=== PATIENT | male | born 1995 | race Caucasian/White ===

== ENCOUNTER 2020-10-13 11:31 | Emergency (ER) | payer OTHER, SELFPAY ==
[2020-10-13 11:42] VITALS: PULSE 84; O2SAT 100
[2020-10-13 11:47] VITALS: BP 164/94; PULSE 82; RESP 16; TEMP 36.3; O2SAT 100; BMI 34.8
[2020-10-13 12:02] LABS: Add Manual Diff / Slide Review NO; Basophils Absolute Auto 100 /uL (0-100); Basophils Percent Auto 0.8 % (0-2); Eosinophils Absolute Auto 100 /uL (0-450); Eosinophils Percent Auto 1.3 % (2-4); Hematocrit 44.8 % (41-53); Hemoglobin 15.5 g/dL (13.5-17.5); Lymphocytes Absolute Auto 1600 /uL (1100-4500); Lymphocytes Percent Auto 14.8 % (25-40); Mean Corpuscular HGB Conc 34.7 % (30-36); Mean Corpuscular Hemoglobin 30.8 PG (26-34); Mean Corpuscular Volume 88.9 fL (80-100); Monocytes Absolute Auto 500 /uL (0-900); Monocytes Percent Auto 4.8 % (3-14); Neutrophils Absolute Auto 8300 /uL (1500-7000); Neutrophils Percent Auto 78.3 % (50-75); Platelet Count 254 X10^3/uL (150-400); Red Blood Cell Count 5.04 X10^6/uL (4.5-5.9); Red Cell Distribution Width 13.1 % (11.6-14.8); White Blood Cell Count 10.6 X10^3/uL (4.5-11.0)
[2020-10-13 12:09] LABS: INR 0.9 (0.9-1.3); Prothrombin Time 10.4 SECONDS (10.1-12.7)
[2020-10-13 12:11] LABS: PTT Partial Thromboplastin Tim 27 SECONDS (26.4-36.2)
[2020-10-13 12:13] LABS: Alanine Aminotransferase 66 IU/L (<50); Albumin Globulin Ratio 1.3 (1.0-2.8); Alkaline Phosphatase 96 U/L (38-126); Aspartate Aminotransferase 61 IU/L (17-59); BUN Creatinine Ratio 14.4 (6-22); Bilirubin Total 0.6 mg/dL (0.2-1.3); Blood Urea Nitrogen 15 mg/dL (9-20); Calcium 9.8 mg/dL (8.4-10.2); Carbon Dioxide 23 mmol/L (22-32); Chloride 106 mmol/L (98-107); Estimated Glomerular Filt Rate > 60.0 mL/min (>60); Globulin 3.9 g/dL (1.7-4.1); Glucose 114 mg/dL (70-100); HEMOLYSIS 19 (0-50); Lipase 76 U/L (23-300); Potassium 4.1 mmol/L (3.4-5.1); Sodium 140 mmol/L (137-145); Total Protein 8.9 g/dL (6.3-8.2)
--- NOTE | 2020-10-13 12:22 | DI.CT.S_ITS ---
PROCEDURE: CT ABDOMEN PELVIS W CON INDICATIONS: left abd/side pain TECHNIQUE: After the administration of intravenous contrast, 5 mm thick sections acquired from the diaphragm to the symphysis. 5 mm coronal and sagittal reformats were acquired. For radiation dose reduction, the following was used: automated exposure control, adjustment of mA and/or kV according to patient size. COMPARISON: None. FINDINGS: Image quality: Excellent. ABDOMEN: Lung bases: Lung bases are clear. Heart size is normal. Solid organs: Liver is normal in size and enhancement. Diffuse fatty liver infiltration is noted. Gallbladder wall is not thickened. Biliary system is non dilated. Pancreas enhances normally. Spleen is normal in size and enhancement. No adrenal nodules. There is an obstructing stone seen within the left proximal ureter, as on series 4, image 39 and on series 2 image 36, which measures 6 mm craniocaudal. There is mild associated right-sided hydroureter and hydronephrosis. No right-sided hydronephrosis is seen. To the limits of this contrast enhanced study, no nonobstructing stones are seen. Peritoneum and bowel: Bowel loops demonstrate normal wall thickness and caliber. No free fluid or air. A normal appendix is incidentally noted. Nodes and vessels: No retroperitoneal or mesenteric adenopathy by size criteria. Aorta and inferior vena cava are normal in size. Miscellaneous: No ventral hernias. PELVIS: Genitourinary: Bladder wall thickness is normal. Miscellaneous: No inguinal hernias or adenopathy. Bones: No suspicious bony lesions. No vertebral body compression fractures. IMPRESSION: 6 mm obstructing stone seen within the left proximal ureter. Incidental note is made of: Fatty liver infiltration Normal appendix Dictated by: Bar Greco M.D. on 10/13/2020 at 11:59 Approved by: Bar Greco M.D. on 10/13/2020 at 12:01
[2020-10-13 12:31] LABS: Bacteria Urine None Seen
[2020-10-13 12:39] LABS: Creatine Kinase 120 U/L (55-170)
[2020-10-13] MEDS: KETOROLAC 60 MG/2 ML VIAL 15 MG IV (12:40)
[2020-10-13 12:45] LABS: Culture Indicated Urine Cult Not Indicated; RBC Urine >100/HPF (0-5/HPF); Squamous Epithelial Cell Urine 0-1 /HPF (0-5/HPF); WBC Urine 0-1/HPF (0-5/HPF)
[2020-10-13 12:47] VITALS: BP 138/82; PULSE 85; O2SAT 99
[2020-10-13 13:00] VITALS: BP 127/72; PULSE 78; O2SAT 97
--- NOTE | 2020-10-13 13:16 | ED.ABDPAIN ---
HPI - Abdominal Pain <EDGAR Barragan - Last Filed: 10/13/20 15:59> General Chief Complaint: Abdominal Pain Stated Complaint: stabbing pain in side and pee looks like pop Time Seen by Provider: 10/13/20 12:05 Source: patient and family Mode of arrival: Family Vehicle Limitations: no limitations History of Present Illness HPI narrative: This is a 25-year-old male, smoker, who has noncontributory medical history presents to ED with family with chief complain of left abdominal and side pain since this morning. Patient noticed coke color urine since last night. Patient denies dysuria, urinary frequency, or flank pain but noticed foamy urine. He denies fever, chills, nausea or vomiting. Patient reports pain started after drinking a large glass of water this morning. Pain is sharp in character and rates as 9/10. Patient denies other aggravating or relieving factors. Patient reports after his resting in bed pain seems slightly improved however. Patient never had this type of pain before and denies history of kidney stones. Patient reports his mother had couple of kidney stones in the past. Patient denies past abdominal surgery history. Patient denies swelling or bulging and testicle region and denies penile discharge. Patient reports he has loose stools for last 3 days but this is not abnormal for him. Patient denies known exposure to COVID-19. Related Data Previous Rx's Medication Instructions Recorded benzonatate [Tessalon Perles] 100 mg PO TID #30 cap 12/25/17 ipratropium-albuterol [Combivent 1 puff INH QID #1 inh 12/25/17 Respimat] hydrocodone-acetaminophen [[place]] 1 tab PO Q6H PRN #14 tab 10/13/20 ondansetron 4 mg PO Q6H PRN #10 tab 10/13/20 tamsulosin [Flomax] 0.4 mg PO BEDTIME #10 cap 10/13/20 Allergies Allergy/AdvReac Type Severity Reaction Status Date / Time Penicillins [PENICILLINS] Allergy Unknown Verified 10/13/20 11:51 Review of Systems <EDGAR Barragan - Last Filed: 10/13/20 15:59> Review of Systems Narrative: General: Denies fever, chills, fatigue, malaise, sweats. HEENT: Denies sinus pain, ear pain, sore throat, difficulty swallowing, dizziness. Respiratory: Denies dyspnea, cough, wheezing, hemoptysis, sputum. Cardiovascular: Denies chest pain, palpitations, orthopnea, edema. Gastrointestinal: See HPI : See HPI Musculoskeletal: Denies weakness, joint pain or bony pain. Skin: Denies rash, skin lesions, or other. Neurologic: Denies weakness, headache, numbness, change in speech, confusion, seizures, incoordination. Psychiatric: No concerning psychosocial issues. 12-point review of systems is negative except for those stated above. Patient History [facility] - Last Filed: 10/13/20 15:59> Social History Smoking Status: Current some day smoker Smoking Status: Current some day smoker tobacco type: cigarettes alcohol intake frequency: 0-2 drinks per day Substance Use Type: does not use Exam <[facility] - Last Filed: 10/13/20 15:59> Narrative Exam Narrative: GEN: Alert, oriented x 3, well appearing and nourished, and in no acute distress. Head: Normal cephalic, atraumatic. No scalp or temporal tenderness, palpable mass or rash. EYES: Pupils are equal, round, and reactive to light and accommodation. Extraocular muscles are intact bilaterally. There is no subconjunctival hemorrhage, exudate and sclera non-icteric. ENT: Hearing grossly intact. Nose without bleeding, purulent discharge or deviation. Mucous membrane moist, no mucosal lesion. Throat without erythema, tonsillar hypertrophy or exudate. Uvula in midline, airway patent. Neck: Trachea in midline. No JVD, non-tender without lymphadenopathy. No masses or thyroid megaly. Supple, non-tender and no meningeal signs. CARDIAC: Normal regular rate and rhythm without murmurs, gallops, or rubs. No chest wall tenderness. No peripheral edema, cyanosis or pallor. Capillary refill is less than 2 seconds. RESPIRATORY: Lungs are clear to auscultate bilaterally. No cough, wheezes, rales, or rhonchi. No stridor, respiratory distress, increase work of breathing, or accessary muscle used. ABD: Abdomen soft and non-distended. Left mid and lower quadrant discomfort to palpate. No guarding or rebound tenderness to palpate. Bowel sounds are normal in all 4 quadrants. There is no palpable masses or organomegaly. EXT: Full painless ROM of all extremities with no loss of sensation, strength, effusion or edema. SKIN: Warm, dry, normal color for patient. No erythema, lesions or rash over visible areas. BACK: Nontender without deformity or crepitance. No flank tenderness. NEUROLOGICAL: Alert and oriented to place, time and person. Sensation and motor function intact bilaterally. No facial droops, dysphasia. PSYCHIATRIC: Good judgement and reason, without hallucinations, abnormal affect or abnormal behaviors during the examination. Patient is not suicidal. Initial Vital Signs Initial Vital Signs: Vital Signs Pulse Rate 84 10/13/20 11:42 Pulse Oximetry 100 10/13/20 11:42 <Munira Umanzor DO - Last Filed: 10/13/20 19:10> Initial Vital Signs Initial Vital Signs: Vital Signs Pulse Rate 84 10/13/20 11:42 Pulse Oximetry 100 10/13/20 11:42 Scores <EDGAR Barragan - Last Filed: 10/13/20 15:59> GCS José Antonio coma scale eye opening: Spontaneous José Antonio coma scale verbal response: Orientated José Antonio coma scale motor response: Obey commands José Antonio coma scale total score: 15 Course <EDGAR Barragan - Last Filed: 10/13/20 15:59> Orders Ordered: ED Orders 10/13/20 11:55 Complete Blood Count AUTO DIFF Stat Comprehensive Metabolic Panel Stat Creatine Kinase Stat Lipase Stat Partial Thromboplastin Time Stat Prothrombin Time INR Stat 10/13/20 12:22 CT abdomen pelvis w con Stat 10/13/20 12:30 Urine Microscopic Stat Discontinued Medications Ketorolac Tromethamine (Ketorolac 60 Mg/2 Ml Vial) 15 mg IV NOW ONE Stop: 10/13/20 12:23 Last Admin: 10/13/20 12:40 Dose: 15 mg Documented by: JUDSON Vital Signs Vital signs: Vital Signs - 8 hr 10/13/20 11:42 10/13/20 11:47 10/13/20 12:47 Temperature 97.4 F L Pulse Rate 84 82 85 Respiratory Rate 16 Blood Pressure 164/94 H 138/82 Pulse Oximetry 100 100 99 10/13/20 13:00 Temperature Pulse Rate 78 Respiratory Rate Blood Pressure 127/72 Pulse Oximetry 97 <Munira Umanzor DO - Last Filed: 10/13/20 19:10> Orders Ordered: ED Orders 10/13/20 11:55 Complete Blood Count AUTO DIFF Stat Comprehensive Metabolic Panel Stat Creatine Kinase Stat Lipase Stat Partial Thromboplastin Time Stat Prothrombin Time INR Stat 10/13/20 12:22 CT abdomen pelvis w con Stat 10/13/20 12:30 Urine Microscopic Stat Discontinued Medications Ketorolac Tromethamine (Ketorolac 60 Mg/2 Ml Vial) 15 mg IV NOW ONE Stop: 10/13/20 12:23 Last Admin: 10/13/20 12:40 Dose: 15 mg Documented by: JUDSON Vital Signs Vital signs: Vital Signs - 8 hr 10/13/20 11:42 10/13/20 11:47 10/13/20 12:47 Temperature 97.4 F L Pulse Rate 84 82 85 Respiratory Rate 16 Blood Pressure 164/94 H 138/82 Pulse Oximetry 100 100 99 10/13/20 13:00 Temperature Pulse Rate 78 Respiratory Rate Blood Pressure 127/72 Pulse Oximetry 97 MDM - Abdominal Pain <EDGAR Barragan - Last Filed: 10/13/20 15:59> Differential Diagnosis Differential diagnosis: Likely abdominal pain, calculus of kidney, small bowel obstruction and other (Diverticulosis, diverticulitis, testicular torsion, cystitis) Medical Records Attestation: I reviewed the patient's medical records. Lab Data Attestation: I reviewed the patient's lab results. Result diagrams: 10/13/20 11:55 10/13/20 11:55 Labs: Lab Results 10/13/20 10/13/20 10/13/20 Range/Units 11:55 11:55 11:55 WBC 10.6 (4.5-11.0) X10^3/uL RBC 5.04 (4.5-5.9) X10^6/uL Hgb 15.5 (13.5-17.5) g/dL Hct 44.8 (41-53) % MCV 88.9 (80-100) fL MCH 30.8 (26-34) PG MCHC 34.7 (30-36) % RDW 13.1 (11.6-14.8) % Plt Count 254 (150-400) X10^3/uL Neut % (Auto) 78.3 H (50-75) % Lymph % (Auto) 14.8 L (25-40) % [place] % (Auto) 4.8 (3-14) % Eos % (Auto) 1.3 L (2-4) % Baso % (Auto) 0.8 (0-2) % Neut # (Auto) 8300 H (2474-6457) /uL Lymph # (Auto) 1600 (8995-5137) /uL [place] # (Auto) 500 (0-900) /uL Eos # (Auto) 100 (0-450) /uL Baso # (Auto) 100 (0-100) /uL PT 10.4 (10.1-12.7) SECONDS INR 0.9 (0.9-1.3) APTT 27 (26.4-36.2) SECONDS Sodium 140 (137-145) mmol/L Potassium 4.1 (3.4-5.1) mmol/L Chloride 106 (98-107) mmol/L Carbon Dioxide 23 (22-32) mmol/L BUN 15 (9-20) mg/dL Creatinine 1.04 (0.66-1.25) mg/dL Estimated GFR > 60.0 (>60) mL/min BUN/Creatinine Ratio 14.4 (6-22) Glucose 114 H (70-100) mg/dL Calcium 9.8 (8.4-10.2) mg/dL Total Bilirubin 0.6 (0.2-1.3) mg/dL AST 61 H (17-59) IU/L ALT 66 H (<50) IU/L Alkaline Phosphatase 96 (38-126) U/L Total Creatine Kinase (55-170) U/L Total Protein 8.9 H (6.3-8.2) g/dL Albumin 5.0 (3.5-5.0) g/dL Globulin 3.9 (1.7-4.1) g/dL Albumin/Globulin Ratio 1.3 (1.0-2.8) Lipase 76 (23-300) U/L Urine RBC (0-5/HPF) Urine WBC (0-5/HPF) Ur Squamous Epith Cells (0-5/HPF) Urine Bacteria (None) Ur Culture Indicated? 10/13/20 10/13/20 Range/Units 11:55 12:30 WBC (4.5-11.0) X10^3/uL RBC (4.5-5.9) X10^6/uL Hgb (13.5-17.5) g/dL Hct (41-53) % MCV (80-100) fL MCH (26-34) PG MCHC (30-36) % RDW (11.6-14.8) % Plt Count (150-400) X10^3/uL Neut % (Auto) (50-75) % Lymph % (Auto) (25-40) % [place] % (Auto) (3-14) % Eos % (Auto) (2-4) % Baso % (Auto) (0-2) % Neut # (Auto) (8889-2506) /uL Lymph # (Auto) (8877-3207) /uL [place] # (Auto) (0-900) /uL Eos # (Auto) (0-450) /uL Baso # (Auto) (0-100) /uL PT (10.1-12.7) SECONDS INR (0.9-1.3) APTT (26.4-36.2) SECONDS Sodium (137-145) mmol/L Potassium (3.4-5.1) mmol/L Chloride (98-107) mmol/L Carbon Dioxide (22-32) mmol/L BUN (9-20) mg/dL Creatinine (0.66-1.25) mg/dL Estimated GFR (>60) mL/min BUN/Creatinine Ratio (6-22) Glucose (70-100) mg/dL Calcium (8.4-10.2) mg/dL Total Bilirubin (0.2-1.3) mg/dL AST (17-59) IU/L ALT (<50) IU/L Alkaline Phosphatase (38-126) U/L Total Creatine Kinase 120 (55-170) U/L Total Protein (6.3-8.2) g/dL Albumin (3.5-5.0) g/dL Globulin (1.7-4.1) g/dL Albumin/Globulin Ratio (1.0-2.8) Lipase (23-300) U/L Urine RBC >100/hpf H (0-5/HPF) Urine WBC 0-1/hpf (0-5/HPF) Ur Squamous Epith Cells 0-1 /hpf (0-5/HPF) Urine Bacteria None seen (None) Ur Culture Indicated? Cult not indicated Point of care testing: Urine Dip Bedside Urine Glucose Negative Bedside Urine Bilirubin - Negative Bedside Urine Ketone - Negative Urine Specific [place] 1.025 Bedside Urine Occult Blood +++ Bedside Urine pH 6.0 Bedside Urine Protein + 30 Bedside Urine Urobilinogen - Negative Bedside Urine Nitrite - Negative Bedside Urine Leukocytes - Negative Esterase Imaging Data CT scan - abdomen/pelvis: Radiologist's Impression: [address] [id number] Scan ReportSigned Patient: Gilbert Paz IMR#: [id number]: [id number]:[id number]/Sex: 25 / MDate of Service: 10/13/20Loc: EDAccession Number: [id number] Procedure: CT abdomen pelvis w con Ordering Provider: Magdiel Torres PROCEDURE: CT ABDOMEN PELVIS W CON INDICATIONS: left abd/side pain TECHNIQUE: After the administration of intravenous contrast, 5 mm thick sections acquired from the diaphragm to the symphysis. 5 mm coronal and sagittal reformats were acquired. For radiation dose reduction, the following was used: automated exposure control, adjustment of mA and/or kV according to patient size. COMPARISON: None. FINDINGS: Image quality: Excellent. ABDOMEN: Lung bases: Lung bases are clear. Heart size is normal. Solid organs: Liver is normal in size and enhancement. Diffuse fatty liver infiltration is noted. Gallbladder wall is not thickened. Biliary system is non dilated. Pancreas enhances normally. Spleen is normal in size and enhancement. No adrenal nodules. There is an obstructing stone seen within the left proximal ureter, as on series 4, image 39 and on series 2 image 36, which measures 6 mm craniocaudal. There is mild associated right-sided hydroureter and hydronephrosis. No right-sided hydronephrosis is seen. To the limits of this contrast enhanced study, no nonobstructing stones are seen. Peritoneum and bowel: Bowel loops demonstrate normal wall thickness and caliber. No free fluid or air. A normal appendix is incidentally noted. Nodes and vessels: No retroperitoneal or mesenteric adenopathy by size criteria. Aorta and inferior vena cava are normal in size. Miscellaneous: No ventral hernias. PELVIS: Genitourinary: Bladder wall thickness is normal. Miscellaneous: No inguinal hernias or adenopathy. Bones: No suspicious bony lesions. No vertebral body compression fractures. IMPRESSION: 6 mm obstructing stone seen within the left proximal ureter. Incidental note is made of: Fatty liver infiltration Normal appendix Dictated by: Bar Greco M.D. on 10/13/2020 at 11:59 Approved by: Bar Greco M.D. on 10/13/2020 at 12:01 [facility] Narrative Medical decision making narrative: This is a 25-year-old male who presents to ED with left side abdominal and side pain which started this morning with dark color urine since last night. No history of previous kidney stones. Urine test does not indicate infection but large amount of blood. CK was negative and patient denies increasing weight lifting or exercise. Patient's physical exam was not typical for renal stones and CT of abd/pelvis ordered to rule out colitis, diverticulitis. CT shows 6 mm obstructing stone within the left proximal ureter. No indications for appendicitis and normal bowel loops with thickness and caliber. No leukocytosis. Normal kidney function. Incidental finding of fatty liver infiltration that should be followed up with primary care physician. Patient's pain was well managed after the IV Toradol. We discussed strict return precautions and advised to follow with Dr. Geiger and to try passing stone at home with pain management and using Flomax. Patient verbalized understanding and in agreement with treatment plan. Patient sent home with urinary strainer. <Munira Umanzor, DO - Last Filed: 10/13/20 19:10> Lab Data Labs: Lab Results 10/13/20 10/13/20 10/13/20 Range/Units 11:55 11:55 11:55 WBC 10.6 (4.5-11.0) X10^3/uL RBC 5.04 (4.5-5.9) X10^6/uL Hgb 15.5 (13.5-17.5) g/dL Hct 44.8 (41-53) % MCV 88.9 (80-100) fL MCH 30.8 (26-34) PG MCHC 34.7 (30-36) % RDW 13.1 (11.6-14.8) % Plt Count 254 (150-400) X10^3/uL Neut % (Auto) 78.3 H (50-75) % Lymph % (Auto) 14.8 L (25-40) % [place] % (Auto) 4.8 (3-14) % Eos % (Auto) 1.3 L (2-4) % Baso % (Auto) 0.8 (0-2) % Neut # (Auto) 8300 H (1623-7077) /uL Lymph # (Auto) 1600 (1239-5566) /uL [place] # (Auto) 500 (0-900) /uL Eos # (Auto) 100 (0-450) /uL Baso # (Auto) 100 (0-100) /uL PT 10.4 (10.1-12.7) SECONDS INR 0.9 (0.9-1.3) APTT 27 (26.4-36.2) SECONDS Sodium 140 (137-145) mmol/L Potassium 4.1 (3.4-5.1) mmol/L Chloride 106 (98-107) mmol/L Carbon Dioxide 23 (22-32) mmol/L BUN 15 (9-20) mg/dL Creatinine 1.04 (0.66-1.25) mg/dL Estimated GFR > 60.0 (>60) mL/min BUN/Creatinine Ratio 14.4 (6-22) Glucose 114 H (70-100) mg/dL Calcium 9.8 (8.4-10.2) mg/dL Total Bilirubin 0.6 (0.2-1.3) mg/dL AST 61 H (17-59) IU/L ALT 66 H (<50) IU/L Alkaline Phosphatase 96 (38-126) U/L Total Creatine Kinase (55-170) U/L Total Protein 8.9 H (6.3-8.2) g/dL Albumin 5.0 (3.5-5.0) g/dL Globulin 3.9 (1.7-4.1) g/dL Albumin/Globulin Ratio 1.3 (1.0-2.8) Lipase 76 (23-300) U/L Urine RBC (0-5/HPF) Urine WBC (0-5/HPF) Ur Squamous Epith Cells (0-5/HPF) Urine Bacteria (None) Ur Culture Indicated? 10/13/20 10/13/20 Range/Units 11:55 12:30 WBC (4.5-11.0) X10^3/uL RBC (4.5-5.9) X10^6/uL Hgb (13.5-17.5) g/dL Hct (41-53) % MCV (80-100) fL MCH (26-34) PG MCHC (30-36) % RDW (11.6-14.8) % Plt Count (150-400) X10^3/uL Neut % (Auto) (50-75) % Lymph % (Auto) (25-40) % [place] % (Auto) (3-14) % Eos % (Auto) (2-4) % Baso % (Auto) (0-2) % Neut # (Auto) (2146-5085) /uL Lymph # (Auto) (3031-2371) /uL [place] # (Auto) (0-900) /uL Eos # (Auto) (0-450) /uL Baso # (Auto) (0-100) /uL PT (10.1-12.7) SECONDS INR (0.9-1.3) APTT (26.4-36.2) SECONDS Sodium (137-145) mmol/L Potassium (3.4-5.1) mmol/L Chloride (98-107) mmol/L Carbon Dioxide (22-32) mmol/L BUN (9-20) mg/dL Creatinine (0.66-1.25) mg/dL Estimated GFR (>60) mL/min BUN/Creatinine Ratio (6-22) Glucose (70-100) mg/dL Calcium (8.4-10.2) mg/dL Total Bilirubin (0.2-1.3) mg/dL AST (17-59) IU/L ALT (<50) IU/L Alkaline Phosphatase (38-126) U/L Total Creatine Kinase 120 (55-170) U/L Total Protein (6.3-8.2) g/dL Albumin (3.5-5.0) g/dL Globulin (1.7-4.1) g/dL Albumin/Globulin Ratio (1.0-2.8) Lipase (23-300) U/L Urine RBC >100/hpf H (0-5/HPF) Urine WBC 0-1/hpf (0-5/HPF) Ur Squamous Epith Cells 0-1 /hpf (0-5/HPF) Urine Bacteria None seen (None) Ur Culture Indicated? Cult not indicated Point of care testing: Urine Dip Bedside Urine Glucose Negative Bedside Urine Bilirubin - Negative Bedside Urine Ketone - Negative Urine Specific [place] 1.025 Bedside Urine Occult Blood +++ Bedside Urine pH 6.0 Bedside Urine Protein + 30 Bedside Urine Urobilinogen - Negative Bedside Urine Nitrite - Negative Bedside Urine Leukocytes - Negative Esterase Discharge Plan Departure Patient Disposition: Home Clinical Impression: Left ureteral stone Instructions: DI for Kidney Stones Activity Restrictions/Additional Instructions: You have been diagnosed with [obstructing left-sided ureter stone measuring 6 mm. No indications for appendicitis. Incidental findings of fatty liver infiltration which should be followed up in the future with PCP.]. What to do: *Take your medications as directed. You can take ibuprofen 400-600 mg up to 3 times a day as needed for pain with food to decrease GI irritation. Severe pain, please take [place] which is narcotic pain medication. This can cause drowsiness so please do not drive, drink alcohol, or operate heavy equipments. Also, it can cause constipation so please increase fiber and water intake. Flomax at night daily to help passing stones. Zofran for nausea as needed. *Follow up with your primary care provider in 2-3 days, call for an appointment. Let them know you were seen in the ED and that we asked you to be seen in follow up. *Return to ED if you have any new, worsening, or concerning symptoms, such as [fever, worsening pain, unable to tolerate fluids, flank pain, chest pain, breathing difficulty, severe hematuria, unable to void, or any acute concerns]. Prescriptions: New tamsulosin [Flomax] 0.4 mg capsule 0.4 mg PO BEDTIME Qty: 10 RF: 0 hydrocodone-acetaminophen [[place]] 5-325 mg tablet 1 tab PO Q6H PRN (Reason: pain) Qty: 14 RF: 0 ondansetron 4 mg tablet,disintegrating 4 mg PO Q6H PRN (Reason: nausea and vomiting) Qty: 10 RF: 0 No Action benzonatate [Tessalon Perles] 100 MG capsule 100 mg PO TID Qty: 30 RF: 0 ipratropium-albuterol [Combivent Respimat] 4 GM mist 1 puff INH QID Qty: 1 RF: 0 Referrals: [facility] [Outside] Ros Geiger MD [Physician] - Miscellaneous,MD Kory [Primary Care Provider] - Stand Alone Forms: Work Release Note <Munira Umanzor DO - Last Filed: 10/13/20 19:10> Cosign ED Attending Cosignature Attestation: I was immediately available in the department for consultation. This documentation has been reviewed and I agree with assessment and plan. Supervised by Munira Umanzor DO
== END 2020-10-13 14:10 | disposition home or self-care (01) ==
PROVIDERS: Emergency Medicine; Emergency Provider Nurse Practitioner Family; Family Provider Pediatrics
DX: N20.1 Calculus of ureter (principal); R10.9 Unspecified abdominal pain; R19.7 Diarrhea, unspecified
CPT/HCPCS: 36415; 74177; 80053; 81003; 81015; 82550; 83690; 85025; 85610; 85730; 93005; 93010; 96374; 99284; J1885; Q9967

== ENCOUNTER → 2021-06-13 10:32 | Outpatient (CLI) | payer OTHER, SELFPAY ==
--- NOTE | 2021-06-13 10:33 | DI.CT.S_ITS ---
PROCEDURE: CT KIDNEY URETER BLADDER (KUB) INDICATIONS: CALCULUS OF KIDNEY TECHNIQUE: Axial sections were acquired from the lung bases to the pubic symphysis. Coronal and sagittal reformats were performed. For radiation dose reduction, the following was used: automated exposure control, adjustment of mA and/or kV according to patient size. COMPARISON: [facility], CT, CT ABDOMEN PELVIS W CON, 10/13/2020, 12:33. FINDINGS: Image quality: Excellent. Evaluation of the solid parenchymal organs is limited without IV contrast. Lung bases: Unremarkable. Heart: No significant findings. URINARY: Right Kidney: No stones or hydronephrosis. Right Ureter: No hydroureter. Left Kidney: No stones or hydronephrosis. Left Ureter: No hydroureter. Previously seen left ureteral stone is no longer present. Bladder: Decompressed. No stones. ABDOMEN: Liver: Suspect hepatic steatosis. Gallbladder: Unremarkable. Biliary ducts: Unremarkable. Pancreas: Unremarkable. Spleen: Unremarkable. Adrenal Glands: Unremarkable. Stomach and Bowel: Stomach, small bowel loops, and colon are unremarkable. Normal appendix Peritoneum: No abnormal intraperitoneal fluid. No free air. Ventral Wall: No hernia. Abdominal Nodes: No enlarged retroperitoneal or mesenteric lymph nodes. Vessels: Aorta and inferior vena cava are normal in size. PELVIS: Pelvic Organs: Unremarkable. Pelvic Nodes: Unremarkable. Miscellaneous: No inguinal hernias are seen. Bones: Unremarkable. IMPRESSION: No hydronephrosis. No kidney stones. Dictated by: Nuno Saucedo M.D. on 06/13/2021 at 11:28 Approved by: Nuno Saucedo M.D. on 06/13/2021 at 11:32
== END ==
PROVIDERS: Family Provider Pediatrics; Referring Provider Specialist; Visit Provider Specialist
DX: N20.1 Calculus of ureter (principal); N20.0 Calculus of kidney
CPT/HCPCS: 74176

== ENCOUNTER → 2021-11-11 08:13 | Outpatient (CLI) | payer OTHER, SELFPAY ==
[2021-11-11 10:24] LABS: Calcium 9.7 mg/dL (8.4-10.2); Uric Acid 7.8 mg/dL (3.5-8.5)
[2021-11-12 14:08] LABS: Calcium 9.4 mg/dL (8.7-10.2); Parathyroid Hormone, Intact 24 pg/mL (15-65)
== END ==
PROVIDERS: Family Provider Pediatrics; Referring Provider Specialist; Visit Provider Specialist
DX: Z87.442 Personal history of urinary calculi (principal); R39.9 Unspecified symptoms and signs involving the genitourinary system; N20.1 Calculus of ureter
CPT/HCPCS: 36415; 82310; 83970; 84550

== ENCOUNTER → 2023-02-09 07:49 | Outpatient (CLI) | payer OTHER, SELFPAY ==
[2023-02-09 08:35] LABS: Hemoglobin A1C% w Est Avg Glu 5.7 % (4.0-6.0)
[2023-02-09 09:09] LABS: Alanine Aminotransferase 36 IU/L (<50); Albumin 4.7 g/dL (3.5-5.0); Albumin Globulin Ratio 1.5 (1.0-2.8); Alkaline Phosphatase 93 U/L (38-126); Aspartate Aminotransferase 25 IU/L (17-59); BUN Creatinine Ratio 13.5 (6-22); Bilirubin Total 0.6 mg/dL (0.2-1.3); Blood Urea Nitrogen 15 mg/dL (9-20); Calcium 9.3 mg/dL (8.4-10.2); Carbon Dioxide 24 mmol/L (22-32); Chloride 106 mmol/L (98-107); Cholesterol 232 mg/dL (140-199); Estimated Glomerular Filt Rate > 60 mL/min (>60); Globulin 3.2 g/dL (1.7-4.1); Glucose 94 mg/dL (70-100); HDL Cholesterol 44 mg/dL (40-60); HEMOLYSIS < 15 (0-50); LDL Cholesterol Calculated 119 mg/dL (<100); Potassium 4.6 mmol/L (3.4-5.1); Sodium 141 mmol/L (137-145); Total Protein 7.9 g/dL (6.3-8.2); Triglycerides 345 mg/dL (35-150)
== END ==
PROVIDERS: Family Provider Pediatrics; PCP Family Medicine; Referring Provider Family Medicine; Visit Provider Family Medicine
DX: N20.0 Calculus of kidney (principal); R73.03 Prediabetes; Z83.3 Family history of diabetes mellitus
CPT/HCPCS: 36415; 80053; 80061; 83036; 84550

== ENCOUNTER → 2023-04-27 08:47 | Outpatient (CLI) | payer OTHER, SELFPAY ==
[2023-04-27 10:33] LABS: Erythrocyte Sedimentation Rate 9 MM/HR (0-15)
[2023-04-27 13:13] LABS: C-Reactive Protein Quant 0.8 mg/dL (<1.0)
[2023-04-29 00:24] LABS: Tissue Transglutaminase IgA <2 U/mL (0-3); Tissue Transglutaminase IgG 2 U/mL (0-5)
== END ==
PROVIDERS: Family Provider Pediatrics; PCP Family Medicine; Referring Provider Internal Medicine Gastroenterology; Visit Provider Internal Medicine Gastroenterology
DX: K62.5 Hemorrhage of anus and rectum (principal); K92.1 Melena; R19.7 Diarrhea, unspecified
CPT/HCPCS: 36415; 83516; 85651; 86140

== ENCOUNTER 2023-06-09 13:27 | Day surgery (SDC) | payer OTHER, SELFPAY ==
--- NOTE | 2023-06-09 | PATH_ITS ---
[facility] Accession Number: [id number] No. of containers..05 Tissue . 01 Material submitted: . PART A: duodenum - DUODENUM PART B: gastrointestinal site - GASTRIC PART C: ileum - TI PART D: colon - DISTAL COLON PART E: colon - PROXIMAL COLON . 01 Clinical history: . A) R/O CELIAC B) R/O CROHN'S C) R/O CRONES D-E) R/O COLITIS . 01 Diagnosis: A. Duodenum, Biopsy: Duodenal mucosa with patchy gastric surface foveolar metaplasia, consistent with peptic duodenitis. Negative for intraepithelial lymphocytosis. Negative for dysplasia and malignancy. . B. Stomach, Biopsies: Helicobacter pylori gastritis, confirmed by immunohistochemistry. Negative for intestinal metaplasia. Negative for dysplasia and malignancy. . C. Terminal Ileum, Biopsy: Small bowel mucosa with no diagnostic abnormality. Negative for active inflammation, dysplasia, and malignancy. . D-E. Distal Colon, Proximal Colon, Biopsies: Colonic mucosa with no diagnostic abnormality. Negative for active, chronic, and microscopic colitis. Negative for dysplasia and malignancy. [facility] 06/17/2023 1803 Local . 01 Electronically signed: . Lisseth Erickson MD, Pathologist NPI- [id number] . 01 Gross description: . A. Received in formalin, labeled with the patient's name, , and designated duodenum, and consists of two rangel soft tissue fragments ranging from 0.1 cm to 0.2 cm in greatest dimension. Submitted entirely in cassette A1. B. Received in formalin, labeled with the patient's name, , and designated gastric, and consists of two rangel soft tissue fragments measuring 0.3 cm each in greatest dimension. Submitted entirely in cassette B1. C. Received in formalin, labeled with the patient's name, , and designated TI rule out Crohn's, and consists of a single rangel soft tissue fragment measuring 0.4 cm in greatest dimension. Submitted entirely in cassette C1. D. Received in formalin, labeled with the patient's name, , and designated distal colon rule out colitis, and consists of two rangel soft tissue fragments ranging from 0.2 cm to 0.5 cm in greatest dimension. Submitted entirely in cassette D1. E. Received in formalin, labeled with the patient's name, , and designated proximal colon rule out colitis, and consists of four rangel soft tissue fragments ranging from 0.2 cm to 0.7 cm in greatest dimension. Submitted entirely in cassette E1. ([id number]) /FRR 06/12/2023 1723 Local . 01 Microscopic: . B. An immunohistochemical stain was performed to evaluate for Helicobacter organisms and is positive. The control stain showed appropriate reactivity. . * This test was developed and its performance characteristics determined by [employer]. It has not been cleared or approved by the U.[place]. Food and Drug Administration. The FDA has determined that such clearance or approval is not necessary. This test is used for clinical purposes. It should not be regarded as investigational or for research. . 01 Pathologist provided ICD-10: R19.7, K92.1, B96.81 . 01 CPT . 081789, 791604, 709443, 818189, 563709, [id number] Specimen Comment: A courtesy copy of this report has been sent to [phone] Performed at: 01 [facility] [address] [place] [address], [place], [place] [id number] MD Tereso Vela MD Phone: [phone]
[2023-06-09 13:42] VITALS: BP 137/96; PULSE 113; RESP 19; TEMP 36.8; O2SAT 100; BMI 38.3
[2023-06-09] MEDS: LACTATED RINGERS 1,000 ML 84 ML IV (13:50)
--- NOTE | 2023-06-09 13:58 | PM.HP.1 ---
History of Present Illness History of Present Illness Date Patient Seen: 06/09/23 Chief complaint: SDC Narrative: Diarrhea and rectal bleeding PFSH Medical History Family history of diabetes mellitus Family history of nephrolithiasis Gout History of nephrolithiasis IBS (irritable bowel syndrome) Kidney stones Left ureteral calculus Lower urinary tract symptoms (LUTS) Family History Father Diabetes mellitus Hyperlipidemia Mother Migraines Thyroid disorder Kidney stones Grandfather Diabetes mellitus Social History marital status: unmarried,single household members: significant other occupational status: employed Smoking Status: Former smoker Tobacco: How many years used: 3 alcohol intake: never caffeine: Yes Meds Home Medications and Allergies Home Medications Medication Instructions Recorded Confirmed Type fexofenadine 60 mg tablet (Maylin 60 mg PO PRN PRN Allergy Symptoms 06/09/23 06/09/23 History Allergy) Allergies Allergy/AdvReac Type Severity Reaction Status Date / Time Penicillins [PENICILLINS] Allergy Unknown Verified 11/12/21 09:54 Exam Vital Signs (past 8 hours): - 06/09/23 13:42 Temperature 98.3 F Pulse Rate 113 H Respiratory Rate 19 Blood Pressure 137/96 H Pulse Oximetry 100 Oxygen Delivery Method Room Air Oxygen Delivery Method Room Air Narrative Exam Narrative: Oropharynx free of lesions Chest clear to auscultation percussion Cardiac exam reveals no S3 or murmur Assessment & Plan Assessment & Plan narrative: Diarrhea and rectal bleeding rule out inflammatory bowel disease. Risks, benefits, alternatives have been explained.
--- NOTE | 2023-06-09 13:59 | PM.OP.EC ---
Operative Date/Time/Diagnoses Date of procedure: 06/09/23 Pre-op diagnosis: See indication and findings Procedure & Clinicians Study performed: EGD and colonoscopy Indications: Rectal bleeding and diarrhea Surgeon: Linnea Alejandre Procedure Notes Procedure in detail: After informed consent was obtained patient was placed in left lateral decubitus position. The video upper scope was placed into the oropharynx and with the patient's help swelled into the esophagus. The esophagus stomach and duodenum were carefully examined. On withdrawal, retroflexed view the GE junction was performed. The scope was removed. The patient tolerated procedure well. Patient was then turned and the colonoscope substituted. This was placed the rectum slowly advanced cecum. On slow withdrawal mucosa was carefully examined. The scope was removed. The patient to the procedure well. Blood loss none Complications none Sedation mac Findings EGD 1. Normal esophagus 2. Patchy gastric erythema biopsies taken to rule out Helicobacter 3. Normal duodenal bulb and sweep biopsies taken to rule out celiac Colonoscopy 1. Normal terminal ileum for age. Biopsies taken 2. Normal colonoscopy to cecum however mild distal patchy erythema. Biopsies taken in proximal colon and distal colon and separate bottles. Patient should follow up with Dr. Page to discuss symptoms. We will be in touch regarding the biopsies. No recall colonoscopy routinely before age 45
[2023-06-09 14:30] VITALS: BP 119/83; PULSE 124; RESP 17; TEMP 36.5; O2SAT 95
[2023-06-09 14:35] VITALS: BP 128/93; PULSE 108; RESP 15; O2SAT 94
[2023-06-09 14:41] VITALS: BP 137/86; PULSE 95; RESP 11; TEMP 36.8; O2SAT 96
== END 2023-06-09 14:52 | disposition home or self-care (01) ==
PROVIDERS: Family Provider Pediatrics; PCP Family Medicine; Referring Provider Internal Medicine Gastroenterology; Visit Provider Internal Medicine Gastroenterology
PROC: 0DJ08ZZ Inspection of Upper Intestinal Tract, Via Natural or Artificial Opening Endoscopic (ICD-10-PCS; CPT 43235; principal; 2023-06-09 14:30)
PROC: 0DJD8ZZ Inspection of Lower Intestinal Tract, Via Natural or Artificial Opening Endoscopic (ICD-10-PCS; CPT 45378; 2023-06-09 14:30)
DX: K62.5 Hemorrhage of anus and rectum (principal); R19.7 Diarrhea, unspecified; Z87.891 Personal history of nicotine dependence
CPT/HCPCS: 45380; 43239; J2704

== ENCOUNTER → 2024-09-12 09:26 | Outpatient (CLI) | payer OTHER, SELFPAY ==
[2024-09-12 10:11] LABS: Influenza A - CEPHEID Flu A NEGATIVE (NEGATIVE); Influenza B - CEPHEID Flu B NEGATIVE (NEGATIVE); Respiratory Syncytial Virus Negative (Negative)
[2024-09-12 10:12] LABS: COVID-19 CEPHEID 4-PLEX PCR Negative (Negative)
== END ==
PROVIDERS: Family Provider Pediatrics; PCP Family Medicine; Visit Provider Physician Assistant
DX: R50.9 Fever, unspecified (principal)
CPT/HCPCS: 0241U